=== PATIENT | male | born 1990 | race Caucasian/White ===

== ENCOUNTER 2017-01-05 14:10 | Emergency (ER) | payer SELFPAY ==
[2017-01-05] MEDS ORDERED: CEPHALEXIN 500 MG CAPSULE PO ONE (14:37)
[2017-01-05] MEDS ORDERED: SULFAMETHOXAZOLE/TRIMETHOPRIM 800-160 MG TABLET PO ONE (14:38)
[2017-01-05] MEDS ORDERED: OXYCODONE-ACETAMINOPHEN 5-325 MG TABLET PO ONE (14:38)
--- NOTE | 2017-01-05 15:15 | RADIOLOGY REPORT (SQ) ---
EXAM DESCRIPTION: KNEE LEFT 4 VIEW COMPLETED DATE/TIME: 01/05/2017 2:53 pm REASON FOR STUDY: cellulitis with tenderness to the proximal fibula COMPARISON: None. NUMBER OF VIEWS: Four views. TECHNIQUE: AP, lateral, and both oblique radiographic images acquired of the left knee. LIMITATIONS: None. FINDINGS: MINERALIZATION: Normal. BONES: No acute fracture or dislocation. No worrisome bone lesions. JOINT: No effusion. SOFT TISSUES: No soft tissue swelling. No radio-opaque foreign body. OTHER: No other significant finding. IMPRESSION: NEGATIVE STUDY OF THE LEFT KNEE. NO RADIOGRAPHIC EVIDENCE OF ACUTE INJURY. TECHNICAL DOCUMENTATION: JOB ID: [id number] [employer]- All Rights Reserved
[2017-01-05] MEDS ORDERED: DIPH/PERTUSS(ACELL)/TETANUS VAC/PF 0.5 ML SYR (>=10YO) IM ONE (15:27)
--- NOTE | 2017-01-05 15:28 | ER Document Report ---
ED Skin Rash/Insect Bite/Abscs - General Chief Complaint: Abscess Stated Complaint: RIGHT LEG SPIDER BIT Time Seen by Provider: 01/05/17 14:24 TRAVEL OUTSIDE OF THE [place] IN LAST 30 DAYS: No - HPI Patient complains to provider of: Tender/swollen area Onset: Other - 2 days ago Onset/Duration: Gradual Quality of pain: Achy, Throbbing Severity: Moderate Skin Character: Blanching, Erythema, Swelling, Tenderness Skin Temperature: Hot Quality of rash: Painful Identify cause: No Exacerbated by: Walking - able to bear weight but pain with ambulation at the site, no pain when standing still Notes: patient states he cut into it with a razor blade yesterday and got minimal purulent material out - Related Data Allergies/Adverse Reactions: No Known Allergies Allergy (Verified 01/05/17 14:11) Past Medical History - Social History Smoking Status: Current Every Day Smoker Family History: Reviewed & Not Pertinent Patient has suicidal ideation: No Patient has homicidal ideation: No Renal/ Medical History: Denies: Hx Peritoneal Dialysis - Immunizations Hx Diphtheria, Pertussis, Tetanus Vaccination: Yes Review of Systems - Review of Systems Constitutional: No symptoms reported. denies: Chills, Diaphoresis, Fever Cardiovascular: No symptoms reported Respiratory: No symptoms reported Musculoskeletal: No symptoms reported Skin: See HPI -: Yes All other systems reviewed and negative Physical Exam - Vital signs Vitals: Temp Pulse Resp BP Pulse Ox 97.7 F 98 18 139/83 H 95 01/05/17 14:14 01/05/17 14:14 01/05/17 14:14 01/05/17 14:14 01/05/17 14:14 - General General appearance: Appears well, Alert In distress: None - Cardiovascular Pulses: Normal: Popliteal, Dorsalis pedis Normal capillary refill: Yes - Extremities General lower extremity: Normal inspection, Nontender, Normal color, Normal ROM , Normal strength, Normal temperature, Normal weight bearing - Skin Skin irregularity: other - cellulitis left medial knee with induartion wihtout fluctuance, drainage Course - Re-evaluation Re-evalutation: 01/05/17 17:05 Patient is a 26-year-old male who is hemodynamic stable, no acute distress afebrile. Full range of motion of the lower extremity with cellulitis of the right knee. Low clinical suspicion for septic joint given no diffuse erythema, tenderness or swelling of the right knee. Patient with full range of motion and no pain. Patient without any pain on ambulation. No evidence of gas production on x-ray or evidence of effusion. Marked site with skin marker and initiated patient on antibiotics given strict return precautions and will follow up on Monday for wound check. Patient agrees with plan. - Vital Signs Vital signs: Temp Pulse Resp BP Pulse Ox 98.3 F 87 12 134/86 H 98 01/05/17 15:40 01/05/17 15:40 01/05/17 15:40 01/05/17 15:40 01/05/17 15:40 - Diagnostic Test Radiology reviewed: Image reviewed, Reports reviewed Discharge - Discharge Clinical Impression: Cellulitis Qualifiers: Site of cellulitis: extremity Site of cellulitis of extremity: lower extremity Laterality: right Qualified Code(s): L03.115 - Cellulitis of right lower limb Condition: Good Disposition: HOME, SELF-CARE Instructions: Cellulitis ([facility]), Trimethoprim-Sulfa ([facility]), Cephalexin ([facility]) Additional Instructions: Please return to the emergency department if your redness and swelling progressed to blast the purple line. Please use warm packs as tolerated to help encourage drainage. Please follow-up on Monday for wound check. Prescriptions: Cephalexin Monohydrate [Keflex 500 mg Capsule] 500 mg PO QID #20 capsule Sulfamethoxazole/Trimethoprim [Bactrim Ds Tablet] 1 each PO BID #10 tablet Forms: Elevated Blood Pressure Referrals: [facility] [NO LOCAL MD] - Follow up as needed
[2017-01-05 15:42] VITALS: BP 134/86
== END 2017-01-05 15:47 | disposition home or self-care (01) ==
LOC: ER 14:10
DX: L03.115 Cellulitis of right lower limb (principal); L02.415 Cutaneous abscess of right lower limb; F17.200 Nicotine dependence, unspecified, uncomplicated; W57.XXXA Bitten or stung by nonvenomous insect and other nonvenomous arthropods, initial encounter
CPT/HCPCS: 90471; 90715; 99283

== ENCOUNTER 2018-05-05 23:14 | Emergency (ER) | payer MEDICAID ==
[2018-05-05 23:25] VITALS: BP 139/82
--- NOTE | 2018-05-05 23:41 | ER Document Report ---
HPI - HPI Patient complains to provider of: Penile discharge Time Seen by Provider: 05/05/18 23:33 Onset: Yesterday Onset/Duration: Gradual Quality of pain: Burning Pain Level: 3 Context: Patient presents complaining of burning with urination and yellow penile discharge. Patient denies any fever. Patient states he has had gonorrhea before and suspects the same today. Associated Symptoms: Other - Penile discharge. denies: Fever Exacerbated by: Denies Relieved by: Denies Similar symptoms previously: Yes Recently seen / treated by doctor: No - ROS ROS below otherwise negative: Yes Systems Reviewed and Negative: Yes All other systems reviewed and negative - CONSTITUTIONAL Constitutional: DENIES: Fever - EENT EENT: DENIES: Sore Throat - RESPIRATORY Respiratory: DENIES: Trouble Breathing, Coughing - GASTROINTESTINAL Gastrointestinal: DENIES: Abdominal Pain, Nausea, Patient vomiting - URINARY Urinary: REPORTS: Dysuria - DERM Skin Color: Normal Skin Problems: None Past Medical History - General Information source: Patient - Social History Smoking Status: Current Every Day Smoker Smoking Education Provided: Yes Frequency of alcohol use: None Drug Abuse: None Occupation: Construction Family History: Reviewed & Not Pertinent - Medical History Medical History: Negative Renal/ Medical History: Denies: Hx Peritoneal Dialysis Surgical Hx: Negative - Immunizations Hx Diphtheria, Pertussis, Tetanus Vaccination: Yes Vertical Provider Document - CONSTITUTIONAL Agree With Documented VS: Yes Exam Limitations: No Limitations General Appearance: WD/WN, No Apparent Distress - INFECTION CONTROL TRAVEL OUTSIDE OF THE [place] IN LAST 30 DAYS: No - HEENT HEENT: Atraumatic, Normocephalic - NECK Neck: Normal Inspection, Supple - RESPIRATORY Respiratory: Breath Sounds Normal, No Respiratory Distress - CARDIOVASCULAR Cardiovascular: Regular Rate, Regular Rhythm - GI/ABDOMEN Gastrointestinal: Abdomen Soft, Abdomen Non-Tender - REPRODUCTIVE Male Genitalia: Abnormal Inspection - Yellow discharge from penis Notes: Normal cremasteric reflex, bilateral palpable inguinal lymphadenopathy, no scrotal tenderness or swelling. No abnormal skin lesions to perineum. Destini CRAIG as standby - BACK Back: Normal Inspection. negative: CVA Tenderness-Left - MUSCULOSKELETAL/EXTREMETIES Musculoskeletal/Extremeties: MAEW - NEURO Level of Consciousness: Awake, Alert, Appropriate Motor/Sensory: No Motor Deficit - DERM Integumentary: Warm, Dry, No Rash Course - Vital Signs Vital signs: Temp Pulse Resp BP Pulse Ox 98.1 F 100 18 139/82 H 98 05/05/18 23:22 05/05/18 23:22 05/05/18 23:22 05/05/18 23:22 05/05/18 23:22 - Laboratory Laboratory results interpreted by me: 05/06/18 01:31 Labs- Entire Visit 05/05/18 23:55 Urine Color YELLOW Urine Appearance CLEAR Urine pH 6.0 Ur Specific [place] 1.017 Urine Protein NEGATIVE Urine Glucose (UA) NEGATIVE Urine Ketones NEGATIVE Urine Blood NEGATIVE Urine Nitrite NEGATIVE Urine Bilirubin NEGATIVE Urine Urobilinogen NEGATIVE Ur Leukocyte Esterase SMALL H Urine WBC (Auto) 58 Urine RBC (Auto) 3 Urine Mucus (Auto) RARE Urine Ascorbic Acid NEGATIVE Discharge - Discharge Clinical Impression: Penile discharge, Concern about STD in male without diagnosis, Urethritis Condition: Stable Disposition: HOME, SELF-CARE Instructions: Azithromycin ([facility]), Rocephin ([facility]), Urethritis ([facility]) Additional Instructions: Return immediately for any new or worsening symptoms Followup with your primary care provider, call tomorrow to make a followup appointment Safe sex practices, avoidance use a condom Forms: Smoking Cessation Education [facility] - Follow up as needed
[2018-05-06 00:26] LABS: APPEARANCE,URINE CLEAR; BILIRUBIN,URINE NEGATIVE (NEGATIVE); COLOR,URINE YELLOW; GLUCOSE, URINE NEGATIVE (NEGATIVE); KETONES,URINE NEGATIVE (NEGATIVE); LEUKOCYTE ESTERASE,URINE SMALL (NEGATIVE); NITRITE,URINE NEGATIVE (NEGATIVE); PROTEIN,URINE NEGATIVE (NEGATIVE); URINE SPECIFIC GRAVITY 1.017; UROBILINOGEN,URINE NEGATIVE mg/dL (<2.0)
[2018-05-06] MEDS ORDERED: LIDOCAINE 1% INJ-PF (10 MG/ML) 30 ML SDV INJ ONE (00:28)
[2018-05-06] MEDS ORDERED: AZITHROMYCIN 250 MG TABLET PO ONE (00:28)
[2018-05-06] MEDS ORDERED: CEFTRIAXONE INJ 250 MG VIAL IM ONE (00:28)
[2018-05-06 01:44] LABS: CHLAM PCR NOT DETECTED (NOT DETECT); GON PCR DETECTED (NOT DETECT)
== END 2018-05-06 00:50 | disposition home or self-care (01) ==
LOC: ER 23:14
DX: N34.2 Other urethritis (principal); R36.9 Urethral discharge, unspecified; R30.0 Dysuria; F17.200 Nicotine dependence, unspecified, uncomplicated; Z20.2 Contact with and (suspected) exposure to infections with a predominantly sexual mode of transmission
CPT/HCPCS: 99283; 96372; 81001; 87491; 87591; Q0144; J3490; J0696